=== PATIENT | female | born 1980 | race Caucasian/White ===

== ENCOUNTER 2024-11-08 19:36 | Emergency (ER) | payer MEDICAID ==
[2024-11-08] MEDS: Acetaminophen 500 MG Tab PO ONE (21:14)
[2024-11-08] MEDS: Cyclobenzaprine 10 MG Tab PO ONE (23:34)
== END 2024-11-08 23:39 | disposition home or self-care (01) ==
LOC: FB.ED 19:36
DX: S16.1XXA Strain of muscle, fascia and tendon at neck level, initial encounter (principal); S40.022A Contusion of left upper arm, initial encounter; M54.12 Radiculopathy, cervical region; M62.838 Other muscle spasm; Z88.5 Allergy status to narcotic agent; Z90.49 Acquired absence of other specified parts of digestive tract; Z87.891 Personal history of nicotine dependence; W19.XXXA Unspecified fall, initial encounter
CPT/HCPCS: 72125; 73080-LT; 73090-LT; 73110-LT; 99284; A9270-GY

== ENCOUNTER 2024-11-15 13:58 | Emergency (ER) | payer MEDICAID ==
[2024-11-15] MEDS: Ketorolac 30 MG/ML SDV IM ONE (14:20)
[2024-11-15] MEDS: Dexamethasone 4 MG/ML 5 ML MDV IM ONE (15:05)
== END 2024-11-15 16:15 | disposition home or self-care (01) ==
LOC: FB.ED 13:58
DX: M54.50 Low back pain, unspecified (principal); Z88.8 Allergy status to other drugs, medicaments and biological substances; Z90.49 Acquired absence of other specified parts of digestive tract
CPT/HCPCS: 72131; 96372; 99283; J1100; J1885

== ENCOUNTER 2024-11-25 13:19 | Emergency (ER) | payer MEDICAID ==
[2024-11-25 14:05] LABS: BLOOD UREA NITROGEN,BUN 9 mg/dL (7-18); CALCIUM 8.8 mg/dL (8.6-10.2); CARBON DIOXIDE,CO2 25 mmol/L (21-32); CHLORIDE,CL 106 mmol/L (100-110); CREATININE 0.9 mg/dL (0.55-1.02); EST CRCL DRUG DOSING (CG) 67.36 mL/min; ESTIMATED GFR 82 mL/min (>60); GLUCOSE RANDOM 119 mg/dL (80-116); POTASSIUM,K 3.9 mmol/L (3.5-5.3); SODIUM,NA 140 mmol/L (135-145)
[2024-11-25 14:06] LABS: BASOPHILS ABSOLUTE AUTO 0.1 x10-3/uL (0.0-0.1); BASOPHILS PERCENT AUTO 0.6 % (0.2-1.5); EOSINOPHILS ABSOLUTE AUTO 0.2 x10-3/uL (0.0-0.8); EOSINOPHILS PERCENT AUTO 2.4 % (0.6-8.1); HEMATOCRIT 39.6 % (34.2-48.2); HEMOGLOBIN 13.7 g/dL (11.4-15.5); LYMPHOCYTES ABSOLUTE AUTO 2.5 x10-3/uL (1.0-4.4); LYMPHOCYTES PERCENT AUTO 24.3 % (18.4-52.1); MEAN CORPUSCULAR HEMOGLOBIN 29.3 pg (23.9-33.9); MEAN CORPUSCULAR HGB CONC 34.6 g/dL (31.9-34.8); MEAN CORPUSCULAR VOLUME 84.7 fL (76.7-100.5); MEAN PLATELET VOLUME 8.6 fL (7.1-12.4); MONOCYTES ABSOLUTE AUTO 0.9 x10-3/uL (0.3-1.0); MONOCYTES PERCENT AUTO 9.2 % (4.4-15.7); NEUTROPHILS ABSOLUTE AUTO 6.4 x10-3/uL (1.5-6.3); NEUTROPHILS PERCENT AUTO 63.5 % (30.8-76.2); PLATELET COUNT,PLT 244 x10(3)uL (151-488); RED BLOOD CELL COUNT 4.67 x10(6)uL (3.60-5.20); RED CELL DISTRIBUTION WIDTH 13.6 % (12.3-16.5); WHITE BLOOD CELL COUNT,WBC 10.1 x10-3/uL (3.0-10.3)
[2024-11-25 14:11] LABS: ALANINE AMINOTRANSFERASE,ALT 53 U/L (12-36); ALBUMIN 3.7 g/dL (3.5-5.2); ALKALINE PHOSPHATASE 77 IU/L (56-112); ASPARTATE AMNIOTRANSFERASE,AST 28 IU/L (5-25); BILIRUBIN TOTAL 0.4 mg/dL (0.1-1.3); PROTEIN TOTAL,TP 7.3 g/dL (6.0-8.0)
[2024-11-25] MEDS: Ketorolac 30 MG/ML SDV IM ONE (14:30)
== END 2024-11-25 14:56 | disposition critical access hospital (66) ==
LOC: FB.ED 13:19
DX: R07.89 Other chest pain (principal); M54.12 Radiculopathy, cervical region; E11.9 Type 2 diabetes mellitus without complications; Z87.891 Personal history of nicotine dependence; Z88.5 Allergy status to narcotic agent
CPT/HCPCS: 36415; 71045; 80053; 84484; 85025; 96372; 99285; J1885; 99284

== ENCOUNTER 2025-01-07 20:43 | Emergency (ER) | payer MEDICAID ==
[2025-01-07] MEDS: diphenhydrAMINE 50 MG/ML SDV IVPUSH ONE (21:06)
[2025-01-07 21:12] LABS: BASOPHILS ABSOLUTE AUTO 0.1 x10-3/uL (0.0-0.1); BASOPHILS PERCENT AUTO 0.6 % (0.2-1.5); EOSINOPHILS ABSOLUTE AUTO 0.1 x10-3/uL (0.0-0.8); EOSINOPHILS PERCENT AUTO 1.2 % (0.6-8.1); LYMPHOCYTES ABSOLUTE AUTO 2.9 x10-3/uL (1.0-4.4); LYMPHOCYTES PERCENT AUTO 24.8 % (18.4-52.1); MEAN PLATELET VOLUME 8.4 fL (7.1-12.4); MONOCYTES ABSOLUTE AUTO 0.9 x10-3/uL (0.3-1.0); MONOCYTES PERCENT AUTO 7.6 % (4.4-15.7); NEUTROPHILS ABSOLUTE AUTO 7.7 x10-3/uL (1.5-6.3); NEUTROPHILS PERCENT AUTO 65.8 % (30.8-76.2); PLATELET COUNT,PLT 283 x10(3)uL (151-488); RED BLOOD CELL COUNT 4.93 x10(6)uL (3.60-5.20); RED CELL DISTRIBUTION WIDTH 13.1 % (12.3-16.5); WHITE BLOOD CELL COUNT,WBC 11.8 x10-3/uL (3.0-10.3)
[2025-01-07 21:18] LABS: BLOOD UREA NITROGEN,BUN 9 mg/dL (7-18); CARBON DIOXIDE,CO2 21 mmol/L (21-32); CHLORIDE,CL 107 mmol/L (100-110); CREATININE 0.9 mg/dL (0.55-1.02); ESTIMATED GFR 82 mL/min (>60); GLUCOSE RANDOM 121 mg/dL (80-116); POTASSIUM,K 3.7 mmol/L (3.5-5.3); SODIUM,NA 143 mmol/L (135-145)
[2025-01-07 21:26] LABS: A/G RATIO 1.0; ALANINE AMINOTRANSFERASE,ALT 81 U/L (12-36); ASPARTATE AMNIOTRANSFERASE,AST 41 IU/L (5-25); BILIRUBIN TOTAL 0.4 mg/dL (0.1-1.3); PROTEIN TOTAL,TP 7.6 g/dL (6.0-8.0)
[2025-01-07 22:18] LABS: AMPHETAMINES SCREEN, URINE NEGATIVE (NEGATIVE); BUPRENORPHINE SCREEN,URINE NEGATIVE (NEGATIVE); METHADONE SCREEN, URINE NEGATIVE (NEGATIVE); METHAMPHETAMINE SCREEN, URINE NEGATIVE (NEGATIVE); OXYCODONE SCREEN,URINE NEGATIVE (NEGATIVE)
[2025-01-07] MEDS: Ondansetron 4 MG/2 ML SDV ONE (22:26)
[2025-01-07] MEDS: Ondansetron 4 MG/2 ML SDV IVPUSH ONE (22:27)
[2025-01-07] MEDS: Ketorolac 30 MG/ML SDV IVPUSH ONE (22:54)
== END 2025-01-08 10:23 | disposition home or self-care (01) ==
LOC: FB.ED 20:43
DX: F10.120 Alcohol abuse with intoxication, uncomplicated (principal); E11.9 Type 2 diabetes mellitus without complications; Z88.5 Allergy status to narcotic agent; Y90.8 Blood alcohol level of 240 mg/100 ml or more
CPT/HCPCS: 36415; 80053; 80307; 81025; 83690; 85025; 96361; 96372; 96374; 96375; 99284; 99284-25; J1200; J1885; J2359; J2405; J2765; J7030

== ENCOUNTER 2025-05-09 12:56 | Emergency (ER) | payer MEDICAID ==
[2025-05-09] MEDS: Acetaminophen/HYDROcodone 325-5 MG Tab PO ONE (14:15)
== END 2025-05-09 15:28 | disposition home or self-care (01) ==
LOC: FB.ED 12:56
DX: S96.912A Strain of unspecified muscle and tendon at ankle and foot level, left foot, initial encounter (principal); Z86.16 Personal history of COVID-19; Z87.891 Personal history of nicotine dependence; Z88.5 Allergy status to narcotic agent; W18.49XA Other slipping, tripping and stumbling without falling, initial encounter
CPT/HCPCS: 73630; 99283; A9270